=== PATIENT | female | born 1995 | race Asian ===

== ENCOUNTER 2020-11-12 23:52 | Emergency (ER) | payer MEDICAID, SELFPAY ==
[~2020-11-12] VITALS: Ht 167.6 cm; Wt 49.9 kg
--- NOTE | 2020-11-13 00:12 | NUR ---
PT PLACED IN COVID TENT
[2020-11-13 00:15] VITALS: BP_SYST 129
--- NOTE | 2020-11-13 00:15 | NUR ---
ED MD MURRAY AT PT SIDE TO EVALUATE PT
[2020-11-13 03:30] VITALS: BP_SYST 129
--- NOTE | 2020-11-13 03:30 | NUR ---
Patient given written and verbal discharge instructions and verbalizes understanding. ER MD MURRAY discussed with patient the results and treatment provided. Patient in stable condition. ID arm band removed. Patient educated on pain management and to follow up with PMD. Pain Scale 0/10. Opportunity for questions provided and answered. Medication side effect fact sheet provided.
== END 2020-11-13 03:30 | disposition home or self-care (01) ==
LOC: SED 23:52
DX: J06.9 Acute upper respiratory infection, unspecified (principal); Z20.822 Contact with and (suspected) exposure to COVID-19
CPT/HCPCS: 36415; 71045; 99284